=== PATIENT | male | born 1965 | race Caucasian/White ===

== ENCOUNTER 2022-08-31 18:26 | Outpatient (REF) | payer BC, SELFPAY ==
[2022-08-31 20:44] LABS: Abs Immature Grans 0.02 10^3/uL (0.0-0.06); Absolute Basophil Count 0.08 10^3/uL (0.0-0.2); Absolute Eosinophil Count 0.23 10^3/uL (0.0-0.7); Absolute Lymphocyte Count 1.99 10^3/uL (1.2-3.4); Absolute Monocyte Count 0.69 10^3/uL (0.1-0.8); Absolute Neutrophil Count 4.77 10^3/uL (1.2-6.7); HCT 46.4 % (40.0-50.0); HGB 15.3 g/dL (13.5-17.5); Immature Grans % 0.3; Lymphocytes % 25.6; MCH 29.5 pg (27.0-33.0); MCV 90 fL (80-95); MPV 9.2 fL (8.0-11.0); Monocytes % 8.9; Neutrophils % 61.2; Platelet Count 253 10^3/uL (130-400); RBC 5.18 10^6/uL (4.36-5.78); RDW 12.6 % (11.8-14.1); RDW-SD 41.4 fL; WBC 7.78 10^3/uL (4.4-10.8)
[2022-08-31 21:19] LABS: CREATININE 1.1 mg/dL (0.70-1.30); Calculated LDL 113 mg/dL (<100); Cholesterol 186 mg/dL (<200); Estimated GFR 77.33 (mL/min/1.73m2); HDL Cholesterol 62 mg/dL (40-60); Triglyceride 55 mg/dL (<150)
[2022-08-31 21:41] LABS: Hemoglobin A1C 5.3 % (<5.7)
[2022-09-01 18:29] LABS: PSA, Screening 0.4 ng/mL (<=3.5)
[2022-09-02 12:27] LABS: Hepatitis C Ab w Rflx HCV PCR Negative (Negative)
== END 2022-08-31 18:27 | disposition home or self-care (01) ==
LOC: LBN 18:26
PROVIDERS: Visit Provider Family Medicine
DX: R10.9 Unspecified abdominal pain (principal); Z12.5 Encounter for screening for malignant neoplasm of prostate; R03.0 Elevated blood-pressure reading, without diagnosis of hypertension; Z11.59 Encounter for screening for other viral diseases; Z13.89 Encounter for screening for other disorder
CPT/HCPCS: 80061; 84153; 86803; 82565; 83036; 85025

== ENCOUNTER 2022-09-02 13:32 | Outpatient (REF) | payer BC, SELFPAY | END 2022-09-02 13:33 | disposition home or self-care (01) | LOC: LBN 13:32 | PROVIDERS: Visit Provider Family Medicine | DX: R19.7 Diarrhea, unspecified (principal) | CPT/HCPCS: 87329 ==

== ENCOUNTER 2022-12-28 16:00 | Outpatient (CLI) | payer BC, SELFPAY ==
--- NOTE | 2022-12-28 15:58 | DI.RAD_ITS ---
Exam(s) XR CHEST 2V PA LATERAL EXAM: XR CHEST 2V PA LATERAL CLINICAL HISTORY: EXERTIONAL SHORTNESS OF BREATH, R06.09. TECHNIQUE: 2D digital imaging was performed. COMPARISON: No exams were available for comparison FINDINGS: 2 views: Heart size is normal. The mediastinum is not widened. Lungs are clear. No infiltrates nor pleural effusions. IMPRESSION: No acute pulmonary findings. DATA REPOSITORY: RADIATION DOSE DELIVERED:
== END 2022-12-28 16:20 ==
PROVIDERS: Visit Provider Nurse Practitioner Family
DX: R06.09 Other forms of dyspnea (principal)
CPT/HCPCS: 71046

== ENCOUNTER 2023-02-28 16:25 | Outpatient (REF) | payer BC, SELFPAY ==
[2023-03-30 09:34] LABS: Fungus Smear No Fungi Seen
== END 2023-02-28 16:26 | disposition home or self-care (01) ==
LOC: NCHCN 16:25
PROVIDERS: PCP Nurse Practitioner Family; Visit Provider Nurse Practitioner Family
DX: L60.9 Nail disorder, unspecified (principal)
CPT/HCPCS: 87101; 87107; 87206

== ENCOUNTER 2023-12-14 17:20 | Outpatient (REF) | payer BC, SELFPAY ==
[2023-12-14 21:41] LABS: ALT 35 U/L (16-63); AST 26 U/L (15-37); Albumin 4.3 g/dL (3.4-5.0); Alkaline Phosphatase 79 U/L (46-116); Anion Gap 7.6 mmol/L (3-11); BUN 23 mg/dL (7-18); Bilirubin, Total 0.4 mg/dL (0.2-1.0); CO2 31.4 mmol/L (21.0-32.0); CREATININE 1.1 mg/dL (0.70-1.30); Calcium 9.1 mg/dL (8.5-10.1); Calculated LDL 99 mg/dL (<100); Chloride 105 mmol/L (98-107); Cholesterol 164 mg/dL (<200); Estimated GFR 76.85 (mL/min/1.73m2); Glucose 93 mg/dL (74-106); HDL Cholesterol 59 mg/dL (40-60); Potassium 4.2 mmol/L (3.5-5.1); Sodium 144 mmol/L (136-145); TSH (W/Ref FT4) 2.14 uIU/mL (0.36-3.74); Triglyceride 34 mg/dL (<150)
[2023-12-14 21:59] LABS: Total Protein 7.3 g/dL (6.4-8.2)
[2023-12-15 19:10] LABS: PSA, Screening 0.4 ng/mL (<=4.5)
== END 2023-12-14 17:21 | disposition home or self-care (01) ==
LOC: NCHCN 17:20
PROVIDERS: PCP Nurse Practitioner Family; Visit Provider Nurse Practitioner Family
DX: R00.1 Bradycardia, unspecified (principal); I10 Essential (primary) hypertension; E78.5 Hyperlipidemia, unspecified; Z12.5 Encounter for screening for malignant neoplasm of prostate
CPT/HCPCS: 80053; 80061; 84153; 84443

== ENCOUNTER 2024-01-04 17:53 | Outpatient (REF) | payer BC, SELFPAY ==
[2024-01-04 21:36] LABS: COMMENT (LAB VIEW ONLY) 48.07 mg/dL; Microalb ug/mg Crea 5.6 ug/mg Cr
[2024-01-04 21:41] LABS: Anion Gap 7.6 mmol/L (3-11); BUN 23 mg/dL (7-18); CO2 31.4 mmol/L (21.0-32.0); CREATININE 1.2 mg/dL (0.70-1.30); Calcium 9.3 mg/dL (8.5-10.1); Chloride 104 mmol/L (98-107); Estimated GFR 69.23 (mL/min/1.73m2); Glucose 82 mg/dL (74-106); Potassium 4.2 mmol/L (3.5-5.1); Sodium 143 mmol/L (136-145)
== END 2024-01-04 17:54 | disposition home or self-care (01) ==
LOC: NCHCN 17:53
PROVIDERS: PCP Nurse Practitioner Family; Visit Provider Nurse Practitioner Family
DX: I10 Essential (primary) hypertension (principal)
CPT/HCPCS: 80048; 82043; 82570

== ENCOUNTER 2024-12-31 12:12 | Outpatient (REF) | payer BC, SELFPAY ==
[2024-12-31 16:04] LABS: ALT 35 U/L (16-63); AST 29 U/L (15-37); Albumin 4.1 g/dL (3.4-5.0); Alkaline Phosphatase 63 U/L (46-116); Anion Gap 8.6 mmol/L (3-11); BUN 24 mg/dL (7-18); Bilirubin, Total 0.7 mg/dL (0.2-1.0); CO2 30.4 mmol/L (21.0-32.0); CREATININE 1.1 mg/dL (0.70-1.30); Calcium 9.4 mg/dL (8.5-10.1); Calculated LDL 108 mg/dL (<100); Chloride 103 mmol/L (98-107); Cholesterol 173 mg/dL (<200); Estimated GFR 76.37 (mL/min/1.73m2); Glucose 93 mg/dL (74-106); HDL Cholesterol 57 mg/dL (>or=40); Potassium 3.6 mmol/L (3.5-5.1); Sodium 142 mmol/L (136-145); Total Protein 7.1 g/dL (6.4-8.2); Triglyceride 42 mg/dL (<150)
[2024-12-31 22:14] LABS: PSA, Screening 0.4 ng/mL (<=4.5)
== END 2024-12-31 12:13 | disposition home or self-care (01) ==
LOC: NCHCN 12:12
PROVIDERS: PCP Nurse Practitioner Family; Visit Provider Nurse Practitioner Family
DX: Z12.5 Encounter for screening for malignant neoplasm of prostate (principal); I10 Essential (primary) hypertension
CPT/HCPCS: 80053; 80061; 84153

== ENCOUNTER 2025-06-30 16:09 | Emergency (ER) | payer BC, SELFPAY ==
[2025-06-30 16:10] VITALS: BP 131/87; PULSE 85; RESP 12; TEMP 37.1; O2SAT 96
--- NOTE | 2025-06-30 16:19 | ED.GENADUL_ITS ---
Discharge Plan Disposition Patient Disposition: Home Condition: Stable Discharge Details Clinical Impression: Dog bite of left calf Primary Care Provider: Miladis Hughes ED Provider: [facility] Meds and New Rx's Prescriptions: New amoxicillin-pot clavulanate 875-125 mg tablet 1 tab PO BID 7 Days Qty: 14 0RF mupirocin [Centany] 2 % ointment 1 applic topical BID Qty: 15 0RF Discharge Instructions Instructions: Amoxicillin and Clavulanate, Mupirocin, Animal Bites ED Referrals: Miladis Hughes [Primary Care Provider, Medicine] Discharge Data Discharge Date/Time-TO BE ENTERED AT DEPARTURE: 06/30/25 16:35 HPI General Date/Time Provider Initiated Documentation: 06/30/25 16:18 . HPI Narrative: 59 year-old male presents to ED today by POV/ambulating with a chief complaint of dog bite to L calf, superficial, occured today- dog is UTD on shots, patients last Tdap within 1 year. Quality described as not overly painful, no radiation to active bleeding, has some superficial abrasion wounds to L calf from the bite and mild bruise but no deep punctures. Severity is described as mild. Palliating factors include cleaned with hydrogen peroxide. Provoking factors include nothing specific. Patient not anticoagulated. Related Data Home Medications Medication Instructions Recorded Confirmed amoxicillin 875 mg-potassium 1 tab PO BID 7 days #14 t abs 06/30/25 clavulanate 125 mg tablet mupirocin 2 % topical ointment 1 applic topical BID #1 5 grams 06/30/25 (Centany) Previous Rx's Medication Instructions Recorded amoxicillin 875 mg-potassium 1 tab PO BID 7 days #14 t abs 06/30/25 clavulanate 125 mg tablet mupirocin 2 % topical ointment 1 applic topical BID #1 5 grams 06/30/25 (Centany) Allergies Allergy/AdvReac Type Severity Reaction Status Date / Time No Known Allergies Allergy Unverified 06/30/25 16:13 General Stated Complaint: AnimalBite RICHA: 4 Review of Systems All systems reviewed & are unremarkable except as noted in HPI and below Exam Narrative Exam Narrative: GENERAL APPEARANCE: Well-nourished, non-toxic, awake and alert, atraumatic, no acute distress. SKIN: Warm, pink, dry, small superficial abrasion wounds to left calf with mild ecchymosis, no active bleeding, no deep puncture wounds, no erythema HEAD: Normocephalic, atraumatic, normal hair distribution for gender/age. EYES: Normal conjunctiva, no exudates on lids/lashes. ENT: Nares patent, no circumoral cyanosis, no facial swelling NECK: Supple, trachea midline, painless cervical ROM. LUNGS/CHEST: Non-labored respirations, normal A/P diameter, symmetrical expansion, no chest wall deformity HEART (CV/PV): No peripheral edema, no JVD. ABDOMEN: Soft, non-distended, no guarding. MSK: Normal ROM, no swelling/deformity to bilateral UEs or LEs, moving all extremities without weakness, no cyanosis, spine midline without tenderness, normal curvature. NEURO: Mental Status AAOx4 - alert to person, place, time, events No facial droop, no forehead involvement. Motor: No focal weakness - strength 5/5 in bilateral UEs and LEs, proximal and distal, symmetric. Sensory: sensation intact to light touch globally. Gait normal: patient ambulated without ataxia into ED room. PSYCH: euthymic, cooperative, pleasant, appropriate speech Course Vital Signs Vital signs: Vital Signs Temperature 37.1 C 06/30/25 16:10 Pulse 85 06/30/25 16:10 Respiratory Rate 12 06/30/25 16:10 Blood Pressure 131/87 06/30/25 16:10 Pulse Oximetry 96 06/30/25 16:10 Temperature 37.1 C 06/30/25 16:10 Temperature Source Temporal Artery Scan 06/30/25 16:10 Pulse 85 06/30/25 16:10 Respiratory Rate 12 06/30/25 16:10 Blood Pressure 131/87 06/30/25 16:10 Blood Pressure Position Sitting 06/30/25 16:10 Pulse Oximetry 96 06/30/25 16:10 Oxygen Delivery Method Room Air 06/30/25 16:10 Oxygen Flow Rate 0 06/30/25 16:10 Medical Decision Making This dictation utilizes [id number] dictation software and may contain unedi naz grammatical errors. 59 year-old male presents to ED today by POV/ambulating with a chief complaint of dog bite to L calf, superficial, occured today- dog is UTD on shots, patients last Tdap within 1 year. Quality described as not overly painful, no radiation to active bleeding, has some superficial abrasion wounds to L calf from the bite and mild bruise but no deep punctures. Severity is described as mild. Palliating factors include cleaned with hydrogen peroxide. Provoking factors include nothing specific. Patients' medical history: Negative, otherwise healthy. Family and social history: Noncontributory. Pertinent exam findings / vital signs include small superficial abrasion wounds to left calf with mild ecchymosis, no active bleeding, no deep puncture wounds, no erythema. Differential / pathologies of concern include dog bite. Diagnostic studies of: - None. Interventions of: - Started on Augmentin with prescription sent as well as prescription for mupirocin. ED Course/Assessment/Plan: 59-year-old male presents with a superficial dog bite to left calf, dog is up-to-date on shots, his tetanus is within the last year, is quite superficial, wound was cleaned with BCX punch by licensed staff [facility] and dressed with simple dressing, started on Augmentin and sent a prescription for the remainder of prescription and mupirocin, counseled on keeping it very clean and covered and returning for any red streaking up the leg, increasing signs of infection like fever or increasing swelling and pain. Findings not consistent with infected dog bite. Disposition of Dog Bite of Left Calf. Patient verbalized understanding of the plan and return to ED criteria and engaged in shared decision making. Medical Records Medical records reviewed: Yes I reviewed the patient's medical records. PFSH All Active Problems (Updated 06/30/25 @ 16:25 by ZAHEER Herrera) Dog bite of left calf (Acute) Social History Smoking risk assessment performed?: No Do you feel safe at home: Yes Do you feel safe in your relationship?: Yes
[2025-06-30] MEDS: Amoxicillin 875/Clav. 125 TAB PO (16:34)
== END 2025-06-30 16:35 | disposition home or self-care (01) ==
LOC: ER 16:37
PROVIDERS: Emergency Provider Physician Assistant; PCP Nurse Practitioner Family
DX: S81.852A Open bite, left lower leg, initial encounter (principal); W54.0XXA Bitten by dog, initial encounter
CPT/HCPCS: 99283 ×2